=== PATIENT | female | born 1980 | race Caucasian/White ===

== ENCOUNTER 2017-06-19 09:18 | Emergency (ER) | payer OTHER ==
[2017-06-19 09:23] VITALS: BP 118/73; BMI 28.5
--- NOTE | 2017-06-19 09:48 | DR.GENAD ---
HPI - PCP Primary Care Physician: natasha - Complaint/Symptoms Chief Complaint Doctors Comments: This 36 y/o female presented to the ED with complain of left side cramping and vaginal bleeding onset two days ago. The blood was clotted,increased since previous two days. She denies vomiting or fever. She admits to smoking 3-5 cigaretts daily. She saw her OB ( Dr Delarosa [phone]) on 06/15/17 OB visit.. [id number]/07/16. Chief Complaint:: PT C/O VAGINAL BLEEDING WITH CLOTTING. 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 - Family History History of Family Medical Conditions: Yes Family Medical History: [place], Hypertension - Social History Does patient currently use any type of tobacco product: Yes Have you used tobacco products in the last 12 months: Yes Type of Tobacco Use: Cigarettes Alcohol Use: None Do you use any recreational Drugs:: No Lives With: Family Lives Where: Home - infectious screening In the last 2 months have you had wt loss of >10#?: NO Have you had fever, night sweats or hemotysis?: No Have you traveled outside the country in the last 6 months?: No Isolation: Standard ROS - Review of Systems Constitutional: See HPI Eyes: No Symptoms Reported ENTM: No Symptoms Reported Respiratoy: No Symptoms Reported Cardiovascular: No Symptoms Reported Gastrointestinal/Abdominal: No Symptoms Reported Genitourinary: No Symptoms Reported Neurological: No Symptoms Reported Musculoskeletal: No Symptoms Reported Integumentary: No Symptoms Reported Hematologic/Lymphatic: No Symptoms Reported Endocrine: No Symptoms Reported All Other Systems: Reviewed and Negative PE - Vital Signs Vitals: Temperature 98.1 F Pulse Rate 93 Respiratory Rate 20 Blood Pressure 118/73 O2 Sat by Pulse Oximetry 97 - General Limitations: No Limitations General Appearance: Alert, In No Apparent Distress - Head Head Exam: Normal Inspection, Atraumatic - Eyes Eye exam: Normal Appearance, PERRL, EOMI - ENT ENT Exam: Normal Exam, Normal Oropharynx External Ear Exam: Normal External Inspection TM/Canal Exam: Bilateral Normal Nose Exam: Normal Nose Exam Mouth Exam: Normal Inspection Throat Exam: Normal Inspection - Neck Neck Exam: Normal Inspection, Full ROM - Chest Chest Inspection: Normal Inspection - Respiratory Respiratory Exam: Normal Lung Sounds Bilat Respiratory Exam: Bilateral Clear to Auscultation - Cardiovascular Cardiovascular Exam: Regular Rate, Normal Rhythm - Abdominal Exam Abdominal Exam: Normal Inspection, Normal Bowel Sounds Abdominal Tenderness: LLQ - Extremities Extremities Exam: Normal Inspection - Back Back Exam: Normal Inspection - Neurologic Neurological Exam: Alert, Oriented X3, CN II-XII Intact - Psychiatric Psychiatric Exam: Normal Affect, Normal Mood Course - Reevaluation 1st: Unchanged ROR - Labs Reviewed Result Diagrams: 06/19/17 10:05 06/19/17 10:05 Laboratory: WBC 5.8 X10^3/uL (3.6-10.0) 06/19/17 10:05 RBC 4.21 X10^6/uL (3.5-5.4) 06/19/17 10:05 Hgb 13.9 g/dL (12.0-16.0) 06/19/17 10:05 Hct 39.1 % (36.0-47.0) 06/19/17 10:05 MCV 92.9 fL (80.0-100.0) 06/19/17 10:05 MCH 33.1 pg (27.0-34.0) 06/19/17 10:05 MCHC 35.6 g/dL (33.0-35.0) H 06/19/17 10:05 RDW 11.7 % (11.6-16.5) 06/19/17 10:05 Plt Count 221 X10^3/uL (150.0-450.0) 06/19/17 10:05 MPV 9.8 fL (7.4-11.0) 06/19/17 10:05 Neut % 67.1 % (42.0-75.0) 06/19/17 10:05 Lymph % 17.8 % (21.0-51.0) L 06/19/17 10:05 [place] % 7.7 % (0.0-13.0) 06/19/17 10:05 Eos % 3.0 % (0.9-2.9) H 06/19/17 10:05 Baso % 4.4 % (0.2-1.0) H 06/19/17 10:05 Neut # 3.9 x10^3/uL (2.2-4.8) 06/19/17 10:05 Lymph # 1.0 X10^3/uL (1.3-2.9) L 06/19/17 10:05 [place] # 0.4 x10^3/uL (0.3-0.8) 06/19/17 10:05 Eos # 0.2 x10^3/uL (0.0-0.2) 06/19/17 10:05 Baso # 0.3 X10^3/uL (0.0-0.1) H 06/19/17 10:05 Absolute Nucleated RBC 0.0 /100WBC 06/19/17 10:05 Sodium 139 mmol/L (136-145) 06/19/17 10:05 Corrected Sodium TNP 06/19/17 10:05 Potassium 4.2 mmol/L (3.5-5.1) 06/19/17 10:05 Chloride 104 mmol/L (98-107) 06/19/17 10:05 Carbon Dioxide 26.4 mmol/L (21-32) 06/19/17 10:05 BUN 10 mg/dL (7-18) 06/19/17 10:05 Creatinine 0.81 mg/dL (0.55-1.02) 06/19/17 10:05 Est GFR (MDRD) Af Amer > 60 (>60) 06/19/17 10:05 Est GFR (MDRD) Non-Af > 60 (>60) 06/19/17 10:05 Glucose 102 mg/dL (65-99) H 06/19/17 10:05 Calcium 9.0 mg/dL (8.5-10.1) 06/19/17 10:05 HCG, Quant 32 mIU/mL (0-6) H 06/19/17 10:05 Specimen Type Clean catch urine 06/19/17 10:01 Urine Color Yellow (YELLOW) 06/19/17 10:01 Urine Appearance Hazy (CLEAR) 06/19/17 10:01 Urine pH 7.0 (5.0 - 8.0) 06/19/17 10:01 Ur Specific [place] 1.010 (1.000-1.030) 06/19/17 10:01 Urine Protein 1+ (NEGATIVE) 06/19/17 10:01 Urine Glucose (UA) Negative (NEGATIVE) 06/19/17 10:01 Urine Ketones Negative (NEGATIVE) 06/19/17 10:01 Urine Occult Blood 5+ (NEGATIVE) 06/19/17 10:01 Urine Nitrite Negative (NEGATIVE) 06/19/17 10:01 Urine Bilirubin Negative (NEGATIVE) 06/19/17 10:01 Urine Urobilinogen Normal (NORMAL) 06/19/17 10:01 Ur Leukocyte Esterase 1+ (NEGATIVE) 06/19/17 10:01 Urine RBC 20-25 /HPF (NONE SEEN) 06/19/17 10:01 Urine WBC 0-2 /HPF (NONE SEEN) 06/19/17 10:01 Ur Squamous Epith Cells Few /HPF (NEGATIVE) 06/19/17 10:01 Urine Bacteria Trace /HPF (NEGATIVE) 06/19/17 10:01 Ur Culture Indicated? No/not indicated 06/19/17 10:01 - XRAY XRAY Interpreted by: Radiologist (OB US:Impression: of unknown location. No gestational sac demonstrated. Adnexae appear normal. Differential considerations include a normal early , ectopic , sponstaneous . Given decreasing HCG (110 prior; 39 today); findings are concerning for abnormal . Obstetricqal follow-up and serial ultrasound and serial HGC recommended.) - Diagnosis Discharge Problem: Vaginal bleeding in patient at less than 20 weeks gestation - Discharge Plan Condition: Stable - Follow ups/Referrals Follow ups/Referrals: LEONID MURPHY [Primary Care Provider] - 3 days - Instructions
[2017-06-19 10:04] LABS: BILIRUBIN,URINE NEGATIVE (NEGATIVE); BLOOD/HEMOGLOBIN,URINE 5+ (NEGATIVE); GLUCOSE, URINE NEGATIVE (NEGATIVE); KETONES,URINE NEGATIVE (NEGATIVE); LEUKOCYTE ESTERASE ,URINE 1+ (NEGATIVE); NITRITES,URINE NEGATIVE (NEGATIVE); PROTEIN,URINE 1+ (NEGATIVE); UROBILINOGEN,URINE NORMAL (NORMAL)
[2017-06-19 10:11] LABS: APPEARANCE,URINE HAZY (CLEAR); COLOR,URINE YELLOW (YELLOW); RBC,URINE 20-25 /HPF (NONE SEEN)
[2017-06-19 10:12] LABS: BACTERIA,URINE TRACE /HPF (NEGATIVE); SQUAMOUS EPITHELIAL CELL,UR FEW /HPF (NEGATIVE)
[2017-06-19 10:20] LABS: BASOPHILS # (AUTO) 0.3 X10^3/uL (0.0-0.1); BASOPHILS % (AUTO) 4.4 % (0.2-1.0); EOSINOPHILS # (AUTO) 0.2 x10^3/uL (0.0-0.2); HEMATOCRIT 39.1 % (36.0-47.0); HEMOGLOBIN 13.9 g/dL (12.0-16.0); LYMPHOCYTES % (AUTO) 17.8 % (21.0-51.0); MEAN CORPUSCULAR HEMOGLOBIN 33.1 pg (27.0-34.0); MEAN CORPUSCULAR HGB CONC 35.6 g/dL (33.0-35.0); MEAN CORPUSCULAR VOLUME 92.9 fL (80.0-100.0); MEAN PLATELET VOLUME 9.8 fL (7.4-11.0); MONOCYTES # (AUTO) 0.4 x10^3/uL (0.3-0.8); MONOCYTES % (AUTO) 7.7 % (0.0-13.0); NEUTROPHILS # (AUTO) 3.9 x10^3/uL (2.2-4.8); NEUTROPHILS % (AUTO) 67.1 % (42.0-75.0); PLATELET COUNT 221 X10^3/uL (150.0-450.0); RED BLOOD COUNT 4.21 X10^6/uL (3.5-5.4); RED CELL DISTRIBUTION WIDTH 11.7 % (11.6-16.5); WHITE BLOOD COUNT 5.8 X10^3/uL (3.6-10.0)
[2017-06-19 10:21] LABS: BLOOD UREA NITROGEN 10 mg/dL (7-18); CARBON DIOXIDE 26.4 mmol/L (21-32); CHLORIDE 104 mmol/L (98-107); CREATININE 0.81 mg/dL (0.55-1.02); SODIUM 139 mmol/L (136-145); eGFR BLACK RACES > 60 (>60); eGFR NON BLACK RACES > 60 (>60)
--- NOTE | 2017-06-19 11:41 | US ---
History: with vaginal bleeding and left-sided pelvic pain. Quantitative HCG of 32. Prior HCG of 110. Technique: Using a transabdominal approach multiple sagittal images of the uterus and adnexa were obt ained. Comparison:NONE Findings: Uterus is anteverted measuring 6.0 x 4.2 x 7.1 cm. It appears homogeneous. The endometrium measures 7 mm in thickness. No endometrial fluid is demonstrated. No intrauterine gestation was seen. The right ovary measures 2.7 x 2.0 x 2.1 cm. The left ovary measures 3.0 x 1.6 x 2.9 cm. Both ovaries appear normal. No significant free fluid demonstrated. No gestational sac demonstrated. Impression: 1. of unknown location. No gestational sac demonstrated. Adnexae appear normal. Differentia l considerations include a normal early , ectopic , spontaneous . Given dec reasing HCG, findings are concerning for abnormal . Obstetrical follow-up and serial ultraso und and serial HCG recommended. Reported By:
== END 2017-06-19 12:10 | disposition home or self-care (01) ==
LOC: ER 09:32
DX: O20.9 Hemorrhage in early pregnancy, unspecified (principal)
CPT/HCPCS: 36415; 76801; 80048; 81001; 84702; 85025; 99283; 99284